=== PATIENT | male | born 1945 | race Caucasian/White ===

== ENCOUNTER → 2016-07-17 | Outpatient (CLI) | payer OTHER | LOC: FLAB 11:15 | PROVIDERS: ATTEND Internal Medicine Hematology & Oncology | DX: C90.00 Multiple myeloma not having achieved remission (principal); Z96.89 Presence of other specified functional implants ==

== ENCOUNTER → 2017-05-19 | Outpatient (CLI) | payer OTHER | LOC: FIMAGING 09:12 → EDSTATUS 09:13 | PROVIDERS: ATTEND Internal Medicine | DX: Z09 Encounter for follow-up examination after completed treatment for conditions other than malignant neoplasm (principal); Z87.01 Personal history of pneumonia (recurrent) ==

== ENCOUNTER 2017-05-28 12:14 | Inpatient (IN) | payer OTHER ==
[2017-05-28] MEDS ORDERED: NS 1,000 ML IV ONE (12:38)
--- NOTE | 2017-05-28 12:38 | EDPHY ---
HPI/HX/ROS/PE/MDM Narrative: CHIEF COMPLAINT: Cough, fever HPI: The patient is a 72 y/o male with multiple myeloma arriving with his partner complaining of cough, fever, and chills. He initially noticed chills Wednesday night, 3 days ago, and has been lying in bed with fever and malaise since Wednesday afternoon. His partner has been administering Tylenol regularly for fever as high as ~101F. He has vomited occasionally and has been unable to eat for 3 days due to this. He saw his oncologist yesterday for a monthly follow up appointment and had labs performed at that time. He feels worse today so his PCP referred him to the ED for evaluation of possible pneumonia. REVIEW OF SYSTEMS: Aside from elements discussed in the HPI, a comprehensive 10-point review of systems was reviewed and is negative. PMH: Multiple myeloma SOCIAL HISTORY: Retired facilities maintenance technician. Partner at bedside. PCP: Dr. Roman. Oncologist : Dr. Navarrete. PHYSICAL EXAM: General:Patient is alert, in no acute distress. ENT:Eyes are normal to inspection. ENT inspection normal. Neck: Normal inspection. Full range of motion. Respiratory:No respiratory distress. No wheezes nor rales. Mildly diminished on the right side. Cardiovascular: Regular rate and rhythm. Strong peripheral pulses. Normal cap refill. Abdomen:The abdomen is nontender to palpation. There are no peritoneal signs. Back: Normal to inspection. No tenderness to palpation. Skin: Normal color. No rash. Warm and dry. Extremities: Normal appearance. Full range of motion. Neuro: Oriented x3. Normal motor function. Normal sensory function. ED Course: This is a 72 y/o male with multiple myeloma who presents with a 3-day history of progressive cough, fever, and malaise. Plan for IV, labs, chest x-ray, 1L IV NS. Patient is slightly hypoxemic on room air here. O2 via NC administered. Chest x-ray: right lower lobe pneumonia. Reassessed patient and discussed findings. Recommended admission, which he agrees to. 1gm IV Rocephin and 500mg IV azithromycin ordered. Spoke with hospitalist service. Dr. Sosa accepts admission. MDM: I see no signs of septic shock, acute coronary syndrome, pulmonary embolus, empyema, renal failure. - Data Points Imaging Results: Imaging Impressions Chest X-Ray 05/28/17 12:39 Impression: 1. Right lower lobe consolidation/pneumonia. Imaging: I viewed and interpreted images myself Laboratory Results: Laboratory Results 05/28/17 12:51 05/28/17 12:51 05/28/17 05/28/17 05/28/17 12:51 12:51 12:51 WBC 7.50 10^3/uL 10^3/uL (3.80-9.50) RBC 3.98 10^6/uL L 10^6/uL (4.40-6.38) Hgb 13.4 g/dL L g/dL (13.7-17.5) Hct 36.5 % L % (40.0-51.0) MCV 91.7 fL fL (81.5-99.8) MCH 33.7 pg pg (27.9-34.1) MCHC 36.7 g/dL g/dL (32.4-36.7) RDW 14.2 % % (11.5-15.2) Plt Count 112 10^3/uL L 10^3/uL (150-400) MPV 9.8 fL fL (8.7-11.7) Neut % (Auto) 87.7 % H % (39.3-74.2) Lymph % (Auto) 2.7 % L % (15.0-45.0) Ceiba % (Auto) 6.9 % % (4.5-13.0) Eos % (Auto) 0.1 % L % (0.6-7.6) Baso % (Auto) 0.3 % % (0.3-1.7) Nucleat RBC Rel Count 0.0 % % (0.0-0.2) Absolute Neuts (auto) 6.58 10^3/uL H 10^3/uL (1.70-6.50) Absolute Lymphs (auto) 0.20 10^3/uL L 10^3/uL (1.00-3.00) Absolute Monos (auto) 0.52 10^3/uL 10^3/uL (0.30-0.80) Absolute Eos (auto) 0.01 10^3/uL L 10^3/uL (0.03-0.40) Absolute Basos (auto) 0.02 10^3/uL 10^3/uL (0.02-0.10) Absolute Nucleated RBC 0.00 10^3/uL 10^3/uL (0-0.01) Immature Gran % 2.3 % H % (0.0-1.1) Immature Gran # 0.17 10^3/uL H 10^3/uL (0.00-0.10) VBG Lactic Acid 1.3 mmol/L mmol/L (0.7-2.1) Sodium 139 mEq/L mEq/L (135-145) Potassium 3.5 mEq/L mEq/L (3.5-5.2) Chloride 103 mEq/L mEq/L (97-110) Carbon Dioxide 22 mEq/l mEq/l (22-31) Anion Gap 14 mEq/L mEq/L (8-16) BUN 21 mg/dL mg/dL (7-23) Creatinine 1.2 mg/dL mg/dL (0.7-1.3) Estimated GFR 60 Glucose 147 mg/dL H mg/dL (70-100) Calcium 7.5 mg/dL L mg/dL (8.5-10.4) Troponin I < 0.012 ng/mL ng/mL (0.000-0.034) Medications Given: Discontinued Medications Sodium Chloride (Ns) 1,000 mls @ 0 mls/hr IV EDNOW ONE; Wide Open PRN Reason: Protocol Stop: 05/28/17 12:39 Last Admin: 05/28/17 13:03 Dose: 1,000 mls General Time Seen by Provider: 05/28/17 12:24 Initial Vital Signs: Initial Vital Signs Temperature (C) 36.8 C 05/28/17 12:15 Heart Rate 92 05/28/17 12:15 Respiratory Rate 18 05/28/17 12:15 Blood Pressure 151/75 H 05/28/17 12:15 O2 Sat (%) 92 05/28/17 12:15 O2 Delivery Mode Nasal Cannula O2 (L/minute) 2 Allergies/Adverse Reactions: No Known Allergies Allergy (Unverified 05/28/17 12:19) Home Medications: Medication Instructions Recorded Aspirin [Aspirin 325 mg (*)] 325 mg PO DAILY 05/28/17 Herbals/Supplements -Info Only 1 ea PO DAILY 05/28/17 Lenalidomide [Revlimid] 10 mg PO HS 05/28/17 Multivitamins [Multivitamin (*)] 1 each PO DAILY 05/28/17 Tamsulosin HCl [Flomax 0.4 MG (*)] 0.8 mg PO HS 05/28/17 Departure - Departure Disposition: [facility] Inpatient Acute Clinical Impression: Hypoxemia Pneumonia Qualifiers: Pneumonia type: due to unspecified organism Laterality: right Lung location: lower lobe of lung Qualified Code(s): J18.1 - Lobar pneumonia, unspecified organism Condition: Fair Report Scribed for: Arun Templeton Report Scribed by: Hannah Polanco Date of Report: 05/28/17 Time of Report: 12:59 Physician Review and Approval Statement: Portions of this note were transcribed by an ED scribe. I personally performed the history, physical exam, and medical decision making; and confirm the accuracy of the information in the transcribed note.
[2017-05-28 13:03] LABS: PLATELET COUNT 112 10^3/uL (150-400)
[2017-05-28] MEDS ORDERED: AZITHROMYCIN IV 500 MG in D5W 250 ML IV ONE (13:26)
[2017-05-28] MEDS ORDERED: ACETAMINOPHEN 325 MG TAB PO ONE (14:24)
[2017-05-28] MEDS ORDERED: ONDANSETRON 4 MG/2 ML VIAL IVP ONE (14:33)
[2017-05-28] MEDS ORDERED: PROMETHAZINE HCL 25 MG/ML INJ IVP PRN (15:27)
[2017-05-28] MEDS ORDERED: IBUPROFEN 600 MG TAB PO PRN (15:27)
[2017-05-28] MEDS ORDERED: HYDROmorphone HCL/NS 0.5 MG/ML SYR IVP PRN (15:27)
[2017-05-28] MEDS ORDERED: KETOROLAC 30 MG/1 ML SDV IVP PRN (15:27)
[2017-05-28] MEDS ORDERED: NS 1,000 ML IV SCH (15:30)
--- NOTE | 2017-05-28 16:03 | GHP ---
[f rep st] HISTORY AND PHYSICAL DATE OF ADMISSION: 05/28/2017 CHIEF COMPLAINT: Cough. HISTORY OF PRESENT ILLNESS: The patient is a 72-year-old male who has been having fever and chills w ith a cough for the last 3 days. Fever at home has been up to 101. His has been giving him dennise eduled Tylenol. He has developed nausea and vomiting. He denies any sick contacts. Initially, he j ust felt malaise and chills, but yesterday he started with a cough. This remains nonproductive, alth ough he does feel congested. He has developed a new pleuritic back pain on the right side. He also has diffuse myalgias. PAST MEDICAL HISTORY: 1. Multiple myeloma. 2. BPH. 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 MEDICATIONS: Please see computerized record for full detailed list. ALLERGIES: No known drug allergies. SOCIAL HISTORY: Quit smoking in 2015. Did smoke heavily for about 20 years and then was a closet sm oker sneaking them for the next 20, but quit completely when he was diagnosed with multiple myeloma i n 2015. He also claims alcoholism and has been sober for 30 years. He is retired maintenance inspector. He lives with his partner of 27 years who is at bedside. REVIEW OF SYSTEMS: Complete review of systems obtained. Review of systems are negative regarding co nstitutional, HEENT, GI, pulmonary, cardiovascular, , hematology, skin, muscular, endocrine, and ps ych except for positives and negatives as in HPI. FAMILY HISTORY: Reviewed and noncontributory to the presenting complaint. PHYSICAL EXAMINATION: GENERAL: Well-developed, well-nourished male, in no acute distress. VITAL SI GNS: Temperature 36.8, pulse 95, blood pressure 129/53, saturating 95% on 2 L. HEENT: Eyes: Lesly l conjunctivae. Pupils equal and reactive to light. ENT: Normal ears, nose. Hearing intact. Norm al teeth. Oropharynx moist. NECK: Trachea midline. No thyromegaly. CHEST: Normal respiratory ef fort. LUNGS: Rales at the right base. No wheeze. No rhonchi. CARDIOVASCULAR: Regular rhythm. N o murmur. No extremity edema. ABDOMEN: Soft, nontender. No hepatosplenomegaly. SKIN: Warm, dry, and intact without rash. MUSCULOSKELETAL: No cyanosis or clubbing. Strength 5/5 in upper and lowe r extremities. NEUROLOGIC: Cranial nerves intact. Normal sensation to light touch. PSYCH: Alert and oriented x3. Normal affect. Normal judgment and insight. Normal memory. LABORATORY DATA: White count 7.5, hematocrit 36.5, platelets 112. Sodium 139, potassium 3.5, chlori de 103, bicarb 22, BUN 21, creatinine 1.2, glucose 147. Troponin is negative. Lactate is 1.3. Ches t x-ray viewed by me. My personal interpretation is right lower lobe pneumonia. ASSESSMENT AND PLAN: 1. Community-acquired pneumonia. We will continue ceftriaxone and azithromycin. Respiratory PCR pa sapna is pending. However, given his focal infiltrate on chest x-ray, we will continue with antibiotic s. 2. Multiple myeloma. Continue Revlimid. 3. Benign prostatic hypertrophy. Continue Flomax. CODE STATUS: Full. ADMISSION STATUS: Will admit to observation. Reevaluate tomorrow regarding ongoing need for hospita lization. DVT PROPHYLAXIS: He is high risk. Will place on subcu Lovenox. /[id number]/MODL
[2017-05-28] MEDS: ACETAMINOPHEN 325 MG TAB PO PRN (18:34)
[2017-05-28] MEDS ORDERED: TAMSULOSIN HCL 0.4 MG CAP PO SCH (21:00)
[2017-05-28] MEDS ORDERED: Lenalidomide [Revlimid] 10 MG PO SCH (21:00)
[2017-05-29 05:32] LABS: PLATELET COUNT 108 10^3/uL (150-400)
[2017-05-29] MEDS: ONDANSETRON 4 MG/2 ML VIAL IVP PRN (06:35)
[2017-05-29] MEDS ORDERED: PROTOCOL POTASSIUM 1 DOSE MISC PRN (08:36)
[2017-05-29] MEDS: ASPIRIN 325 MG TAB PO SCH (08:50)
[2017-05-29] MEDS: ENOXAPARIN 40 MG/0.4 ML SYR SC SCH (08:51)
[2017-05-29] MEDS ORDERED: AZITHROMYCIN IV 500 MG in NS 250 ML IV SCH (09:00)
[2017-05-29] MEDS: ACETAMINOPHEN 325 MG TAB PO PRN ×3 (09:54→21:09)
[2017-05-29] MEDS ORDERED: POTASSIUM CL 10 MEQ TAB PO ONE ×3 (10:50→20:50)
--- NOTE | 2017-05-29 12:53 | ASMTCMCOM ---
CM Note CM Note Notes: Pt. is a 72-year-old man admitted w/ PNA. Hx. multiple myeloma, BPH, and neuropathy due to chemo. Pt. hx. of many years of smoking - quit in 2016. Pt. lives w/ his Leta. Likely to be d/c independently when ready. CM available should d/c POC change. Date Signed: 05/29/2017 12:52 PM Electronically Signed By:Yajaira Sanford LCSW
--- NOTE | 2017-05-29 15:57 | GCON ---
[f rep st] CONSULTATION HEMATOLOGY/ONCOLOGY CONSULTATION REASON FOR CONSULTATION: Multiple myeloma. HISTORY OF PRESENT ILLNESS: The patient is a 72-year-old man with a history of IgG kappa myeloma, diagnosed 01/2016. He was treated with RVD, with initially reduced dose Revlimid due to renal impairment. He essentially had a CR based on laboratory studies. While he had stem cells collected, he elected not to proceed with autologous stem cell transplants as consolidative therapy. He has been on maintenance Revlimid at 10 mg daily, days 1-21 every 28 days, as well as Zometa. He was seen in the office 05/27/2017, for usual followup. He had been having a low-grade fever and achiness, but no cough. He was actually feeling better at the time of his visit. He came to the emergency room 05/28/2017, with fever up to 101 despite Tylenol, nausea, vomiting, and nonproductive cough. Chest x-ray demonstrated right lower lobe pneumonia. Respiratory pathogen PCR negative. Azithromycin and ceftriaxone were started yesterday. He reports being very fatigued. He continues to have some nonproductive cough. Nausea is improved, and he was able to eat today, following some Zofran this morning. His is present. PAST MEDICAL HISTORY: 1. Myeloma, as above. 2. BPH. 3. History of neuropathy, attributed to chemotherapy. MEDICATIONS: Revlimid 10 mg daily, days 1-21, every 28 days. Today would be his last dose. Aspirin, Flomax. ALLERGIES: No known drug allergies. SOCIAL HISTORY: He is and lives in [place]. He is a former smoker, quitting in 2015. No alcohol, prior history of alcoholism. He is a retired senior attorney. REVIEW OF SYSTEMS: CONSTITUTIONAL: Fatigue, fever and chills as above. HEENT : No oral ulcers, vision changes. CARDIOVASCULAR: No chest pain, palpitations, orthopnea, or lower extremity edema. RESPIRATORY: Per HPI. GI: Per HPI. HEMATOLOGIC: No bleeding or bruising. PHYSICAL EXAM: VITAL SIGNS: 122/49, heart rate 76, respirations 16, 95% on 2.5 L. T-max 38.1 last night, current temperature 37.1. GENERAL: Fatigued appearing gentleman, in no acute distress. Alert and oriented. HEENT: No scleral icterus. NECK: Supple. LUNGS: A few crackles at the right base, otherwise clear. CARDIOVASCULAR: Regular rate and rhythm. No pretibial edema. ABDOMEN: Soft, nontender, nondistended. SKIN: No rashes. NEUROLOGIC : Grossly nonfocal. LABORATORY STUDIES: WBC 4.9 (53% segs, 40% bands, 3% lymphocytes, 3% monocytes , 1% basophils), hemoglobin 12.2, platelets 108,000. Sodium 138, potassium 3.3 , chloride 105, bicarbonate 22, BUN 21, creatinine 1.2, glucose 123. Normal LFTs. RADIOLOGIC STUDIES: Chest x-ray as above. IMPRESSION: 1. Community acquired pneumonia. He is receiving ceftriaxone and azithromycin. His fever curve appears improved. 2. Myeloma: He will hold his last day of maintenance Revlimid today. Deep vein thrombosis prophylaxis with Lovenox is appropriate, particularly in light of Revlimid therapy. /[id number]/MODL MTDD
--- NOTE | 2017-05-29 16:08 | ASMTCMCOM ---
CM Note CM Note Notes: Pt. d/cing independently this evening. Date Signed: 05/29/2017 04:07 PM Electronically Signed By:Yajaira aSnford LCSW
--- NOTE | 2017-05-29 16:48 | HOSPPROG ---
Hospitalist Progress Note Assessment/Plan: * Pneumonia -feels better but oxygen increasing - now 4L -recheck CXR -PO levaquin * Multiple myeloma -Rezamid * Acute respiratory failure - now up to 4L * BPH - flomax Subjective: Feels much better Objective: Vital Signs Temp Pulse Resp BP Pulse Ox 36.9 C 102 H 18 147/65 H 91 L 05/29/17 16:00 05/29/17 16:00 05/29/17 16:00 05/29/17 16:00 05/29/17 16:00 Laboratory Results 05/29/17 04:29 05/29/17 04:29 05/28/17 05/29/17 05/30/17 05:59 05:59 05:59 Intake Total 274 Output Total 500 Balance -226 - Physical Exam Constitutional: no apparent distress, appears nourished, not in pain Cardiovascular: regular rate and rhythym, no murmur, rub, or gallop Respiratory: no respiratory distress, no rales or rhonchi, clear to auscultation Gastrointestinal: normoactive bowel sounds, soft, non-tender abdomen, no palpable masses Skin: no rashes or abrasions, no fluctuance, no induration Neurologic: AAOx3, sensation intact bilaterally Psychiatric: interacting appropriately, not anxious, not encephalopathic, thought process linear ICD10 Worksheet Patient Problems: Problems Problem Status Onset Hypoxemia Acute Pneumonia Acute
[2017-05-29] MEDS: oxyCODONE IR 5 MG TAB PO PRN ×2 (16:51→21:02)
[2017-05-29] MEDS: TAMSULOSIN HCL 0.4 MG CAP PO SCH (16:59)
--- NOTE | 2017-05-29 17:20 | PDMN ---
Medical Necessity Medical necessity: C/M review: est. > 2 MN LOS for eval and TX of acute and persistent - pneumonia, respiratory failure requiring IV antibiotics 05/28/2017 and 05/29/2017 , ongoing supplemental O2 4L/min., pulse oximetry, cardiac monitoring, transition to oral Levaquin daily starting 05/30/2017, acute inpt PT, comorbid multiple myeloma on Rezamid, BPH per 05/29/2017 Hospitalist progress note.
[2017-05-29] MEDS ORDERED: Lenalidomide [Revlimid] 10 MG PO SCH (18:00)
[2017-05-30] MEDS: oxyCODONE IR 5 MG TAB PO PRN ×3 (03:33→17:19)
[2017-05-30] MEDS: IPRATROPIUM/ALBUTEROL 3 ML DEYVIAL IH PRN ×2 (04:30→09:22)
[2017-05-30 05:26] LABS: PLATELET COUNT 114 10^3/uL (150-400)
[2017-05-30] MEDS ORDERED: POTASSIUM CL 10 MEQ TAB PO ONE ×4 (07:56→19:22)
[2017-05-30] MEDS ORDERED: NS 500 ML IV ONE (08:45)
[2017-05-30] MEDS: ENOXAPARIN 40 MG/0.4 ML SYR SC SCH (08:50)
[2017-05-30] MEDS: ASPIRIN 325 MG TAB PO SCH (08:50)
[2017-05-30] MEDS ORDERED: HEPARIN 10,000 UNIT/10 ML MDV (1,000 UNIT/ML) IVP ONE (10:29)
[2017-05-30] MEDS ORDERED: HEPARIN 10,000 UNIT/10 ML MDV (1,000 UNIT/ML) IVP PRN (10:29)
[2017-05-30] MEDS ORDERED: HEPARIN/DEXTROSE 500 ML IV SCH (10:30)
[2017-05-30] MEDS ORDERED: DILTIAZEM 25 MG/5 ML VIAL IVP SCH (10:30)
[2017-05-30] MEDS ORDERED: DILTIAZEM 125 MG in D5W 125 ML IV ONE (10:30)
[2017-05-30] MEDS ORDERED: ENOXAPARIN 40 MG/0.4 ML SYR SC ONE (10:37)
[2017-05-30] MEDS ORDERED: IOPAMIDOL (ISOVUE 370) 100 ML BTL IV ONE ×2 (10:51→11:19)
[2017-05-30] MEDS ORDERED: DILTIAZEM 125 MG in D5W 125 ML IV SCH (11:00)
--- NOTE | 2017-05-30 13:01 | ECHO ---
[email or web address] [address] Main: [phone] Fax: [email or web address] Echocardiogram Name: CAROL ADAIR MR#: [id number] Study Date: 05/30/2017 Study Time: 12:14 PM Date of : 1945 Age: 72 year(s) Height: 180.3 cm (71 in.) Weight: 74.84 kg (165 lb.) BSA: 1.94 m2 Gender: Male Examination: Echo Indication: new onset afib Image Quality: Adequate Contrast: Requested by: Kiera Sosa BP: 121 mmHg/41 mmHg Heart Rate: Rhythm: Indication: new onset afib Procedure Staff Tactical/Mobile Watch Officer: Gissel Martinez RDCS Reading Physician: Roverto Palma MD Requesting Provider: Conclusions: Normal global systolic LV function. EF is 65 %. Normal diastolic LV function. Mild tricuspid regurgitation is present. The pulmonary artery pressure is moderately increased. Right ventricular systolic pressure measures 47mmHg. Trivial pericardial effusion. Measurements: Chambers Valvular Assessment AV/MV Valvular Assessment TV/PV Normal Normal Normal Name Value Range Name Value Range Name Value Range IVSd (2D): 0.9 cm (0.6 cm-1.1 AV Vmax: 1.64 m/s (1 m/s-1.7 TR Vmax: 3.24 mm/s ( - ) cm) m/s) TR PGmax: 42 mmHg ( - ) LVDd (2D): 4.6 cm (4.2 cm-5.9 AV maxP mmHg ( - ) syst. PAP: 47 mmHg ( - ) cm) LVOT Vmax: 1.21 m/s (0.7 m/s-1.1 PV Vmax: 1.25 m/s (0.6 m/s-0.9 LVDs (2D): 3.1 cm (2.1 cm-4 m/s) m/s) cm) MV E Vmax: 0.81 m/s ( - ) PV PGmax: 6 mmHg ( - ) LVPWd (2D): 1.1 cm (0.6 cm-1 MV A Vmax: 0.74 m/s ( - ) cm) MV E/A: 1.09 ( - ) LVEF (BP): 65 % (>=55 %) RVDd(2D): 2.8 cm (1.9 cm-3.8 cmmm) Continued Measurements: Chambers Valvular Assessment AV/MV Valvular Assessment TV/PV Name Value Name Value Name Value LADs: 3.8 cm MV DecTime: 215 m/s CVP (est.): 5 mmHg LADs Lon.9 cm MV E' Septal: 0.13 m/s Patient: CAROL ADAIR Study Date: 05/30/2017 Page 1 of 2 12:14 PM LA Area: 14.1 cm2 MV E/E' Septal: 6.30 LA Volume: 35 ml MV E/E' Lateral: 8.30 LA Volume Index: 18.0 ml/m2 TAPSE: 2.2 cm RA Area: 18.0 cm2 Findings: Left Ventricle: Normal size left ventricle. No LV hypertrophy. Normal global systolic LV function. EF is 65 %. No regional wall motion abnormality. Normal diastolic LV function. Right Ventricle: Normal size right ventricle. Normal RV function. Left Atrium: The left atrium is normal in size. Right Atrium: The right atrium is normal in size. Mitral Valve: The mitral valve is normal in appearance and function. Trivial to mild mitral regurgitation. No mitral stenosis is present. Aortic Valve: The aortic valve is tri-leaflet and functions normally. There is no aortic valve regurgitation. No aortic valve stenosis is present. Tricuspid Valve: The tricuspid valve is normal in appearance and function. Mild tricuspid regurgitation is present. The pulmonary artery pressure is moderately increased. Right ventricular systolic pressure measures 47mmHg. Pulmonic Valve: The pulmonic valve is normal in appearance and function. Trivial pulmonic valve regurgitation. Aorta: The aorta is normal. Normal size aortic root. IVC: The IVC is normal sized. Pericardium: Trivial pericardial effusion. (No Signature Object) Patient: CAROL ADAIR Study Date: 05/30/2017 Page 2 of 2 12:14 PM [id number]
[2017-05-30] MEDS: ONDANSETRON 4 MG/2 ML VIAL IVP PRN (13:45)
--- NOTE | 2017-05-30 15:12 | SOAPPROG ---
SOAP Progress Note Assessment/Plan: A/P: * Community-acquired PNA (RLL) in immunocompromised host: AF since initiation of abx. Increased O2 requirement. CTA neg for PE. ECHO normal. - was changed from ceftriaxone/Azithro to levofloxacin in anticipation of possible d/c yesterday, change back to 2 drug therapy - he may need ID consult * Myeloma: maintenance Revlimid, on off week. 05/30/17 15:19 Subjective: Tired. Some posterior right chest/back pain. Nonproductive cough. No increased dyspnea. O: O2 sat 88-90% on 5L Selected Entries 05/30/17 10:58 Heart Rate 98 O2 Sat (%) 89 L Temperature (C) 36.5 C Blood Pressure 121/41 H O2 (L/minute) 5 Gen: fatigued appearing, A&O. HEENT: no icterus. CV: RRR, no edema. Lungs: decreased BS RLL, few crackles. Abd: soft, NT. Neuro: nonfocal. Laboratory Tests 05/30/17 05/30/17 04:47 04:47 WBC 3.11 L Hgb 11.4 L Plt Count 114 L Seg Neutrophils % 45 Band Neutrophils % 41 Absolute Seg Neuts 1.40 L Absolute Band Neuts 1.28 H Creatinine 1.4 H Radiology: CTA - neg PE, +RLL consolidation, small left infiltrate ECHO - normal EF, PHTN Objective: Vital Signs Temp Pulse Resp BP Pulse Ox 36.5 C 98 20 121/41 H 89 L 05/30/17 10:58 05/30/17 10:58 05/30/17 10:58 05/30/17 10:58 05/30/17 10:58 Laboratory Results 05/30/17 04:47 05/30/17 04:47 05/29/17 05/30/17 05/31/17 05:59 05:59 05:59 Intake Total 274 1100 Output Total 500 800 525 Balance -226 300 -525 ICD10 Worksheet Patient Problems: Problems Problem Status Onset Hypoxemia Acute Pneumonia Acute
[2017-05-30] MEDS: METOPROLOL TARTRATE 25 MG TAB PO SCH ×2 (15:40→20:36)
[2017-05-30] MEDS: NS 1,000 ML IV SCH (15:50)
--- NOTE | 2017-05-30 16:58 | HOSPPROG ---
Hospitalist Progress Note Assessment/Plan: * Pneumonia -IV ceftriaxone, IV azithro * Multiple myeloma -Revlimid * Acute respiratory failure - oxygen requirement increased over last 24 hours * Rapid afib -converted himself shortly after transfer to tele -start PO beta-oj and Eliquis * BPH - flomax CC time 45 min Subjective: Patient's oxygen requirement when up significantly overnight. As I was in the room seeing him this am, he suddenly went into fast HR >160 with palpitaitons. STAT EKG confirmed afib. Patient transferred emegently to tele. IV diltiazem ordered but patient converted self before it was given, shortly after arriving on tele. Concern for PE given lack of fever/ leukocytosis so STAT CTA rule out PE obtained. This just confirmed severe PNA. Objective: Vital Signs Temp Pulse Resp BP Pulse Ox 36.5 C 95 89 H 129/64 H 5 L 05/30/17 16:00 05/30/17 16:00 05/30/17 16:00 05/30/17 16:00 05/30/17 16:00 Laboratory Results 05/30/17 04:47 05/30/17 04:47 05/29/17 05/30/17 05/31/17 05:59 05:59 05:59 Intake Total 274 1100 Output Total 500 800 525 Balance -226 300 -525 ECHO - normal EF, mild increased pulmonary pressures CTA - no PE, severe PNA case d/w Dr. Rausch - continue IV abx EKG viewed, my personal interpretation is - rapid afib - Physical Exam Constitutional: no apparent distress, appears nourished, not in pain Cardiovascular: no murmur, rub, or gallop, irregularly irregular, tachycardia, No diastolic murmur, No edema Respiratory: no respiratory distress, no rales or rhonchi, clear to auscultation Gastrointestinal: normoactive bowel sounds, soft, non-tender abdomen, no palpable masses Skin: no rashes or abrasions, no fluctuance, no induration Neurologic: AAOx3, sensation intact bilaterally Psychiatric: interacting appropriately, not anxious, not encephalopathic, thought process linear ICD10 Worksheet Patient Problems: Problems Problem Status Onset Hypoxemia Acute Pneumonia Acute
[2017-05-30] MEDS: TAMSULOSIN HCL 0.4 MG CAP PO SCH (17:15)
[2017-05-30] MEDS: ACETAMINOPHEN 325 MG TAB PO PRN (17:20)
[2017-05-30] MEDS: APIXABAN 5 MG TAB PO SCH (20:36)
[2017-05-30] MEDS ORDERED: ENOXAPARIN 80 MG/0.8 ML SYR SC SCH (21:00)
[2017-05-30] MEDS ORDERED: MBX SOLN 30 ML BOTTLE PO PRN (23:06)
[2017-05-31] MEDS: NS 1,000 ML IV SCH (03:11)
[2017-05-31 04:12] LABS: PLATELET COUNT 130 10^3/uL (150-400)
[2017-05-31] MEDS ORDERED: ASPIRIN 81 MG CHEWABLE TAB PO SCH (09:00)
[2017-05-31] MEDS: APIXABAN 5 MG TAB PO SCH ×2 (10:25→19:49)
[2017-05-31] MEDS: METOPROLOL TARTRATE 25 MG TAB PO SCH ×2 (10:25→19:49)
[2017-05-31] MEDS: AZITHROMYCIN IV 500 MG in NS 250 ML IV SCH (10:26)
[2017-05-31] MEDS: ACETAMINOPHEN 325 MG TAB PO PRN ×3 (10:37→22:14)
[2017-05-31] MEDS ORDERED: POTASSIUM CL 10 MEQ TAB PO ONE ×2 (10:39→19:53)
[2017-05-31] MEDS: ONDANSETRON 4 MG/2 ML VIAL IVP PRN ×2 (12:11→17:19)
[2017-05-31] MEDS ORDERED: PROMETHAZINE HCL 25 MG/ML INJ IVP PRN (12:27)
--- NOTE | 2017-05-31 12:47 | SOAPPROG ---
SOAP Progress Note Assessment/Plan: Assessment: 1. Multiple myeloma, in remission. 2. Pneumonia, recurrent (previous episode [place] Oct 2016 [place]) 3. A fib, new Plan: - continue current abx - consider ID consult for evaluation for opportunistic infection - hold revlimid for now - hold ASA while on Eliquis (either one can be used for VTE prophylaxis from Revlimid, but both are not needed) - will check Qigs 25 min spent w/ pt and in coordination of care 05/31/17 12:45 Subjective: feeling better today. Objective: exam: tired, breathing comfortably Lungs: dullness and rhonci RLL CV RRR no MGR Abd: +BS NT ND Ext: no edema Vital Signs Temp Pulse Resp BP Pulse Ox 37.3 C 99 18 140/69 H 91 L 05/31/17 07:09 05/31/17 10:25 05/31/17 07:09 05/31/17 07:09 05/31/17 07:09 Laboratory Results 05/31/17 03:44 05/31/17 03:44 05/30/17 05/31/17 06/01/17 05:59 05:59 05:59 Intake Total 1100 3993 370 Output Total 800 3925 425 Balance 300 68 -55 ICD10 Worksheet Patient Problems: Problems Problem Status Onset Hypoxemia Acute Pneumonia Acute
[2017-05-31] MEDS ORDERED: ALBUTEROL 3 ML DEYVIAL IH PRN (14:00)
--- NOTE | 2017-05-31 14:00 | HOSPPROG ---
Hospitalist Progress Note Assessment/Plan: 72 yo M with hx of MM on chronic immune suppression presenting with pna, recurrent since october # pna: on personal review of chest CT notable for extensive RLL consolidation as well as minimal LLL consolidation currently being treated with ctx/azithro and improving slowly. Discussed with patient and his and they have some concerns for possible opportunistic infection, ? coccidiomycosis after discussion with their relative who is an ID doctor. Will ask ID to consult. Cultures thus far negative, resp PCR negative. # acute hypoxic respiratory failure: patient continues to require 5L of o2 to maintain o2 sats > 90, in setting of above. Will add IS and PRN nebs. # MM: on revlimib, appreciate onc consult, currently in remission # nausea/anorexia: patient with little appetite and c/o nausea when he thinks about eating, began with this infection, will add phenergan and continue zofran. Denies dysphagia/odynophagia. # a fib: monitoring on tele but converted shortly after it began, continue bb/ eliquis # bph: continue flomax # IP status Patient new to my care. Old records reviewed and summarized as above. Further hx obtained from patients present at bedside. Reviewed with Dr. Terry. Subjective: no significant overnight events, continues to be hot and have low grade fevers Objective: Vital Signs Temp Pulse Resp BP Pulse Ox 37.3 C 99 18 140/69 H 91 L 05/31/17 07:09 05/31/17 10:25 05/31/17 07:09 05/31/17 07:09 05/31/17 07:09 Laboratory Results 05/31/17 03:44 05/31/17 03:44 05/30/17 05/31/17 06/01/17 05:59 05:59 05:59 Intake Total 1100 3993 370 Output Total 800 3925 425 Balance 300 68 -55 awake alert nad anicteric op clear rrr no mrg rll rales and scattered wheeze, dec bs soft nt nd no cce warm dry well perfused oriented appropriate - Time Spent With Patient Time Spent with Patient: greater than 35 minutes Time Spent with Patient: Greater than 35 minutes spent on this patients care, greater than 50% of time spent counseling, educating, and coordinating care regarding the above mentioned plan. ICD10 Worksheet Patient Problems: Problems Problem Status Onset Chronic disease mgmt/Transitional Care Acute Pneumonia Acute Hypoxemia Acute
--- NOTE | 2017-05-31 16:21 | ASMTCMCOM ---
CM Note CM Note Notes: 05/31/2017 Case Management Note Pt was sleeping when case management attempted to meet w/pt this afternoon. PT has discontinued from service here in the hospital. There are no anticipated d/c needs from case management d/t marital status and ongoing support from medical providers. Case Management d/c poc: anticipating independent with follow up as directed. Case Management available if needs change. Date Signed: 05/31/2017 04:21 PM Electronically Signed By:Winifred Guzman RN
[2017-05-31] MEDS: TAMSULOSIN HCL 0.4 MG CAP PO SCH (17:19)
[2017-05-31] MEDS: CEFEPIME HCL 1 GM in STERILE WATER INJ 11.3 ML IV SCH (17:19)
--- NOTE | 2017-05-31 19:23 | GCON ---
[f rep st] CONSULTATION DATE OF CONSULTATION: 05/31/2017 REQUESTING PHYSICIAN: Dr. Cande Moody. REASON FOR CONSULTATION: Right-sided pneumonia. HISTORY OF PRESENT ILLNESS: Patient is a 72-year-old male with a past medical history of multiple my eloma, on chronic Revlimid therapy, who I am asked to see in consultation for right-sided pneumonia. The patient describes having the abrupt onset of fever, chills, and malaise approximately 3 days ago . This was associated with nausea and some vomiting. Subsequently, he developed cough and shortness of breath with diffuse myalgias and arthralgias. He does not note any pleuritic chest pain. He does have a preceding history of pneumonia in October last year, which required hospitalization in [place]. Initial evaluation revealed evidence of right lower lobe consolidation. When compared to an x -ray in late April, this was not present. The patient was started on treatment for community-acquire d pneumonia with ceftriaxone and azithromycin. The patient has had persistent fever, chills, night s weats, and pulmonary symptoms despite antibiotic therapy. Yesterday, a CT scan of the chest was perf ormed which shows dense consolidation in the right lower lobe with minimal associated pleural effusio n. There were small patchy areas of consolidation in the left lower lobe. The patient previously gandara s spent significant amounts of time in [place], [place], with the last time being a little ove r 1 year ago. He did travel to [place] approximately 3 weeks prior to onset of symptoms. There are no unusual animal exposures. No unusual hobbies. Patient does not have exposure to hot tubs or cool ing towers. A family member is a pediatric infectious disease physician and raised the possibility o f valley fever to the patient. The patient does describe having prior pneumococcal vaccination. Tod ay, his sputum production is bloody. Given the above findings, I am now asked to assist [facility]. PAST MEDICAL HISTORY: Multiple myeloma on Revlimid, pneumonia requiring hospitalization in [place], BPH, neuropathy associated with prior chemotherapy. PAST SURGICAL HISTORY: Multiple orthopedic surgeries. CURRENT MEDICATIONS: Ceftriaxone 1 g IV daily, azithromycin 500 mg IV daily, Lopressor 25 mg p.o. b. i.d., Flomax 0.8 mg p.o. daily, albuterol nebs as needed, DuoNeb as needed, Eliquis 5 mg p.o. b.i.d. ALLERGIES: No known drug allergies. SOCIAL HISTORY: Patient is a former smoker and user of alcohol but none currently. Recent travel to [place]. Prior travel to [place]. No unusual animal exposures. No animal carcasses on his property. FAMILY HISTORY: Pancreatic cancer. REVIEW OF SYSTEMS: Outside that noted in the HPI, remainder of 10-system review is unremarkable. PHYSICAL EXAMINATION: VITAL SIGNS: Temperature maximum 38.2, temperature current 37.3, heart rate 9 8, respiratory rate 18, blood pressure 140/69, oxygen saturation 91% on 5 L. GENERAL: Patient is mi ldly ill appearing but nontoxic. HEENT: There is no scleral icterus, conjunctival injection, or con junctival petechiae. Oropharynx shows dry mucous membranes with no thrush. There is no nasal discha rge. There is no tenderness over the frontal, maxillary or mastoid area. NECK: Supple without palp able lymphadenopathy or thyromegaly. CHEST: There are bronchial breath sounds present over the righ t lower lung field. The respiratory effort is increased. There is intermittent cough. Sputum is pr esent in a bedside container with blood streaks. CARDIOVASCULAR: Regular rate and rhythm without mu rmurs, gallops, or rubs. ABDOMEN: Soft, nontender, nondistended. There is no palpable organomegaly . Bowel sounds are present. MUSCULOSKELETAL: There is no cyanosis, clubbing, or edema. Well-heale d scar is present over the right shoulder. NEUROLOGIC: Patient is alert and interacts appropriately with examiner. Cranial nerves 2-12 are grossly intact. Sensation is grossly intact. LYMPHATICS: No cervical or supraclavicular nodes. SKIN: No rashes noted. No stigmata of endocarditis. The ski n is diffusely warm to palpation. LABORATORY DATA: White blood cell count 2.9, hematocrit 29.0, platelets 130, neutrophils 49%, bands 39%. Absolute neutrophil count is 2600. Serum creatinine is 1.2. Venous lactate is 1.8. Immunoglo bulins quantitatively are pending. Chest x-ray and CT scan of chest both reviewed and interpreted by me as outlined above. A respiratory pathogen panel by PCR testing is negative. Blood cultures x2 a re no growth to date. IMPRESSION: Right lower lobe pneumonia with underlying multiple myeloma: Most likely, this will be due to Streptococcus pneumoniae based on dense consolidation, presence of myeloma, with additional santiago ggestion from blood-streaked sputum. He also has associated leukopenia but is not neutropenic. Othe r pathogens such as Haemophilus influenzae, Legionella, or atypicals would also be consideration. Th e patient does have recent travel to [place] raising possibility of coccidioidomycosis. I think a ty pical bacterial etiology will be of higher likelihood. However, will obtain serum antibody testing t o further evaluate. Given his immunosuppression, other gram-negative rods such as pseudomonas are a more remote consideration. I suspect his progression is likely the natural history of his disease ra ther than representing treatment failure. RECOMMENDATIONS: 1. Change ceftriaxone to cefepime for addition of antipseudomonal activity. 2. Continue azithromycin. 3. Urine Legionella and Streptococcus pneumoniae antigens. 4. Check coccidioides antibodies. 5. Repeat chest x-ray in a.m. to assess for any further progression of pulmonary infiltrates. 6. Adjust antibiotic therapy accordingly as cultures are available. 7. Will obtain sputum although may be of limited utility given prior antibiotic exposure. Thank you for this consultation. We will continue to follow patient with you. /[id number]/MODL
[2017-06-01] MEDS: ZOLPIDEM TARTRATE 5 MG TAB PO PRN ×2 (00:17→21:20)
[2017-06-01] MEDS ORDERED: POTASSIUM CL 20 MEQ TAB PO ONE (01:30)
[2017-06-01 03:59] LABS: PLATELET COUNT 185 10^3/uL (150-400)
[2017-06-01] MEDS: CEFEPIME HCL 1 GM in STERILE WATER INJ 11.3 ML IV SCH ×2 (06:16→17:40)
[2017-06-01] MEDS: AZITHROMYCIN IV 500 MG in NS 250 ML IV SCH (08:20)
[2017-06-01] MEDS: METOPROLOL TARTRATE 25 MG TAB PO SCH ×2 (08:20→21:21)
[2017-06-01] MEDS: APIXABAN 5 MG TAB PO SCH ×2 (08:20→21:21)
--- NOTE | 2017-06-01 09:30 | CPEKG ---
Heart Rate: 153 RR Interval: 392 QRSD Interval: 78 QT Interval: 280 QTC Interval: 447 QRS [place]: 75 T Wave [place]: 261 EKG Severity - ABNORMAL ECG - EKG Impression: ATRIAL FIBRILLATION WITH RAPID V-RATE EKG Impression: REPOLARIZATION ABNORMALITY, PROB RATE RELATED Electronically Signed By: Trudy Angelo 01-Jun-2017 11:00:52
--- NOTE | 2017-06-01 11:32 | SOAPPROG ---
SOAP Progress Note Assessment/Plan: Assessment: 1. Multiple myeloma, in remission. 2. Pneumonia, recurrent (previous episode [place] Oct 2016 [place] of state) 3. A fib, new Plan: - continue current abx - appreciate ID input - hold revlimid for now - hold ASA while on Eliquis (either one can be used for VTE prophylaxis from Revlimid, but both are not needed) - will check Qigs Subjective: feeling a bit better today. Objective: exam: NAD dullness @ right base Vital Signs Temp Pulse Resp BP Pulse Ox 36.9 C 77 22 H 133/64 H 94 06/01/17 11:20 06/01/17 11:20 06/01/17 11:20 06/01/17 11:20 06/01/17 11:20 Microbiology 05/31/17 19:40 - Final Sputum, Expectorated Laboratory Results 06/01/17 03:40 06/01/17 03:40 05/31/17 06/01/17 06/02/17 05:59 05:59 05:59 Intake Total 3993 1870 250 Output Total 3925 1600 Balance 68 270 250 ICD10 Worksheet Patient Problems: Problems Problem Status Onset Chronic disease mgmt/Transitional Care Acute Hypoxemia Acute Pneumonia Acute
[2017-06-01] MEDS ORDERED: POTASSIUM CL 10 MEQ TAB PO ONE ×2 (11:54→21:09)
--- NOTE | 2017-06-01 14:10 | HOSPPROG ---
Hospitalist Progress Note Assessment/Plan: 72 yo M with hx of MM on chronic immune suppression presenting with pna, recurrent since october # pna: on personal review of chest CT notable for extensive RLL consolidation as well as minimal LLL consolidation in setting of chronic immune suppression, appreciate ID consult--broadened from CTX to cefepime as well as azithro. Much improved symptomatically overnight. Will continue current abx and monitor culture data--cocci, crypto, legionella, strep pneumo pending as well as blood and sputum cxs. Resp PCR negative. # sepsis: in setting of above, fever and tachycardia present on admission with last fever overnight. Continue to trend fever curve. # acute hypoxic respiratory failure: patient continues to require 5L of o2 to maintain o2 sats > 90, in setting of above. Continue to wean as able, ambulation , IS, PRN nebs. # MM: on revlimib, appreciate onc consult, currently in remission # nausea/anorexia: patient with little appetite and c/o nausea when he thinks about eating, began with this infection. Improved overnight and now eating much better. # a fib: monitoring on tele, has recurred overnight but self terminated after a couple of hours, continue bb/eliquis # bph: continue flomax # IP status Further hx obtained from patients present at bedside. Subjective: no significant overnight events, patient currently feeling much better than he was yesterday Objective: Vital Signs Temp Pulse Resp BP Pulse Ox 36.9 C 77 22 H 133/64 H 94 06/01/17 11:20 06/01/17 11:20 06/01/17 11:20 06/01/17 11:20 06/01/17 11:20 Microbiology 05/31/17 19:40 - Final Sputum, Expectorated Laboratory Results 06/01/17 03:40 06/01/17 03:40 05/31/17 06/01/17 06/02/17 05:59 05:59 05:59 Intake Total 3993 1870 250 Output Total 3925 1600 Balance 68 270 250 awake alert nad anicteric op clear rrr no mrg rll rales and scattered wheeze, dec bs soft nt nd no cce warm dry well perfused oriented appropriate - Time Spent With Patient Time Spent with Patient: greater than 35 minutes Time Spent with Patient: Greater than 35 minutes spent on this patients care, greater than 50% of time spent counseling, educating, and coordinating care regarding the above mentioned plan. ICD10 Worksheet Patient Problems: Problems Problem Status Onset Chronic disease mgmt/Transitional Care Acute Hypoxemia Acute Pneumonia Acute
[2017-06-01] MEDS: ACETAMINOPHEN 325 MG TAB PO PRN (17:40)
[2017-06-01] MEDS: TAMSULOSIN HCL 0.4 MG CAP PO SCH (17:59)
--- NOTE | 2017-06-01 18:22 | PCMIDPN ---
Assessment/Plan: Assessment/Plan: * Severe right lower lobe pneumonia/less prominent left lower lobe pneumonia with underlying myeloma: Clinically improved today. Remains most likely this is due to typical pathogens of community-acquired pneumonia such as Streptococcus pneumoniae. Sputum sample shows mixed Gram stain with culture pending. Will continue to follow clinical course an x-ray over time to ensure does not developed enlarging right pleural effusion which would necessitate thoracentesis. Serologic studies for coccidioidomycosis and cryptococcosis are pending. Continue cefepime and azithromycin. Think can hold off on bronchoscopy at this point given patient is clinically improving. 06/01/17 18:14 06/01/17 18:23 Subjective: Patient feels significantly better today. Able to eat a sandwich. Spent most of the day sitting in a chair. Objective: Vital Signs Temp Pulse Resp BP Pulse Ox 36.9 C 84 24 H 144/61 H 93 06/01/17 15:56 06/01/17 15:56 06/01/17 15:56 06/01/17 15:56 06/01/17 16:10 Microbiology 05/31/17 19:40 - Final Sputum, Expectorated Laboratory Results 06/01/17 03:40 05/31/17 06/01/17 06/02/17 05:59 05:59 05:59 Intake Total 3993 1870 975 Output Total 3925 1600 75 Balance 68 270 900 Cefepime # 1 Azithromycin # 5 Blood cultures x2 no growth Chest x-ray with more prominent left-sided infiltrate and potentially slightly increased size of right pleural effusion Urine Streptococcus pneumoniae and Legionella antigens pending Serum cryptococcal antigen and Coccidioides antibody pending Sputum with 2+ white blood cells, mixed Gram stain, and pending culture - Physical Exam General Appearance: alert, no apparent distress, non-toxic EENT: No scleral icterus, No thrush Respiratory: crackles (Left base), other (Decreased breath sounds right base, appears more comfortable today) Cardiac/Chest: regular rate, rhythm Abdomen: non-tender, No distended ICD10 Worksheet Patient Problems: Problems Problem Status Onset Chronic disease mgmt/Transitional Care Acute Hypoxemia Acute Pneumonia Acute
[2017-06-02] MEDS: CEFEPIME HCL 1 GM in STERILE WATER INJ 11.3 ML IV SCH ×2 (06:14→17:14)
[2017-06-02] MEDS ORDERED: POTASSIUM CL 10 MEQ TAB PO ONE (07:36)
[2017-06-02] MEDS: APIXABAN 5 MG TAB PO SCH ×2 (07:50→21:39)
[2017-06-02] MEDS: AZITHROMYCIN IV 500 MG in NS 250 ML IV SCH (07:50)
[2017-06-02] MEDS: METOPROLOL TARTRATE 25 MG TAB PO SCH ×2 (07:51→21:39)
--- NOTE | 2017-06-02 09:00 | SOAPPROG ---
SOAP Progress Note Assessment/Plan: Assessment: 1. Multiple myeloma, in remission. he has hypogammaglobulinemia. 0.4 gm/dl. An option is to give IVIG to help clear the PNA. 2. Pneumonia, recurrent (previous episode [place] 2016 [place] of state[place] Pleural effusion is increasing. films reviewed. Question of tapping RIGHT effusion and sending cultures etc. I'll defer to Dr. Terry. 3. A fib, new Plan: - continue current abx - hold revlimid for now - hold ASA while on Eliquis (either one can be used for VTE prophylaxis from Revlimid, but both are not needed) - will check Qigs - IVIG may be helpful. - consider RIGHT thoracentesis 06/02/17 08:57 Objective: Vital Signs Temp Pulse Resp BP Pulse Ox 37.1 C 83 18 152/46 H 94 06/02/17 07:38 06/02/17 07:38 06/02/17 07:38 06/02/17 07:38 06/02/17 07:38 Microbiology 05/31/17 19:40 - Final Sputum, Expectorated Laboratory Results 06/01/17 03:40 06/02/17 03:44 06/01/17 06/02/17 06/03/17 05:59 05:59 05:59 Intake Total 1870 1375 Output Total 1600 75 Balance [address] up on the RIGHT. Left clear. RR no edema. abdomen benign. - Time Spent With Patient Time Spent With Patient: 30 min face to face ICD10 Worksheet Patient Problems: Problems Problem Status Onset Chronic disease mgmt/Transitional Care Acute Pneumonia Acute Hypoxemia Acute
[2017-06-02] MEDS: ACETAMINOPHEN 325 MG TAB PO PRN (13:12)
--- NOTE | 2017-06-02 16:14 | HOSPPROG ---
Hospitalist Progress Note Assessment/Plan: Assessment: 72 yo M p/w community acquired pneumonia in setting of Multiple Myeloma on chronic immune suppression Plan: # community acquired pneumonia: POA, CXR W/ RLL infiltrate and pleural effusion , suspect it is parapneumonic - symptomatically improving, so will defer thora and counseled patient that the effusion is likely to reabsorb, recommend outpt f/u CXR in 4-6 weeks - cont on Cefepime/Azithro per ID, appreciate ongoing consultation - RVP neg - counseled patient regarding PVX and encouraged him to f/u w/ Dr. Mendenhall to determine whether he requires f/u vaccine, depending on which valency he received # sepsis: POA, in setting of above, evidenced by autonomic dysregulation in setting of infxn w/ end-organ failure (acute resp failure) # acute hypoxic respiratory failure: 2/2 CAP, patient continues to require 2L of o2, weaning, and counseled patient he will likely require o2 at discharge to be reassessed in outpt setting # Multiple Myeloma w/ chronic immunosuppression: previously on revlimib, appreciate onc consult, currently in remission - Ig levels all low, revlimib on hold, onc will consider outpt options, primary is Dr. Navarrete # atrial fibrillation: paroxysmal in setting of infxn/sepsis, monitoring on tele , currently in NSR on tele (personally interpreted) - cont on metoprolol and eliquis # bph: continue flomax diet. regular ppx. high risk, on eliquis code. full dispo. ADD 06/03, pending clinical stabilization of above Subjective: N/V resolved, ongoing severe fatigue Objective: Vital Signs Temp Pulse Resp BP Pulse Ox 36.8 C 75 15 121/55 H 95 06/02/17 11:34 06/02/17 11:34 06/02/17 11:34 06/02/17 11:34 06/02/17 11:34 Microbiology 05/31/17 19:40 - Final Sputum, Expectorated Laboratory Results 06/01/17 03:40 06/02/17 03:44 06/01/17 06/02/17 06/03/17 05:59 05:59 05:59 Intake Total 1870 1375 Output Total 1600 75 Balance 270 1300 - Time Spent With Patient Time Spent with Patient: greater than 35 minutes Time Spent with Patient: Greater than 35 minutes spent on this patients care, greater than 50% of time spent counseling, educating, and coordinating care regarding the above mentioned plan. - Physical Exam Constitutional: no apparent distress, not in pain, No uncomfortable Cardiovascular: regular rate and rhythym, no murmur, rub, or gallop, No edema Respiratory: reduced air movement (R base), inspiratory crackles (L base), No expiratory wheeze, No bronchial breath sounds, No aegophony, No respiratory distress Gastrointestinal: normoactive bowel sounds, soft, non-tender abdomen, no palpable masses, No distension Neurologic: AAOx3, No weakness Psychiatric: interacting appropriately, not anxious, not encephalopathic, thought process linear ICD10 Worksheet Patient Problems: Problems Problem Status Onset Chronic disease mgmt/Transitional Care Acute Pneumonia Acute Hypoxemia Acute
[2017-06-02] MEDS: TAMSULOSIN HCL 0.4 MG CAP PO SCH (17:14)
[2017-06-02] MEDS: ACETAMINOPHEN 500 MG TAB PO SCH ×2 (17:14→21:39)
--- NOTE | 2017-06-02 17:37 | PCMIDPN ---
Assessment/Plan: Assessment/Plan: * Severe right lower lobe pneumonia/less prominent left lower lobe pneumonia with underlying myeloma: Continued clinical improvement with antibiotic therapy. Sputum shows Pseudomonas aeruginosa and Kellen albicans. Unclear if Pseudomonas represents true pathogen versus colonization - await susceptibility profile on Pseudomonas. Clinical presentation most compatible with typical pathogens of community-acquired pneumonia. Nevertheless, covered by cefepime. Will discontinue azithromycin given Legionella antigen is negative. Plan repeat chest x-ray with lateral decubitus films tomorrow to assess pleural effusion further. Discussed hypogammaglobulinemia with Dr. Torrez with probable replacement IVIG to begin tomorrow which may help facilitate resolution of pneumonia. Kellen albicans in sputum does not require targeted therapy as unlikely contributing. 06/02/17 17:33 Subjective: Patient continues to feel improved. Today's the best day he has felt. Cough has decreased and breathing more easily. Objective: Vital Signs Temp Pulse Resp BP Pulse Ox 36.8 C 64 15 131/61 H 92 06/02/17 16:00 06/02/17 16:00 06/02/17 16:00 06/02/17 16:00 06/02/17 16:00 Microbiology 05/31/17 19:40 - Final Sputum, Expectorated Laboratory Results 06/01/17 03:40 06/02/17 03:44 06/01/17 06/02/17 06/03/17 05:59 05:59 05:59 Intake Total 1870 1375 Output Total 1600 75 Balance 270 1300 Cefepime # 2 Azithromycin # 6 Blood cultures x2 no growth Urine Streptococcus pneumoniae and Legionella antigens negative Serum cryptococcal antigen Coccidioides antibody pending Sputum with 2+ white blood cells, mixed Gram stain, and growth of Pseudomonas aeruginosa/Kellen albicans - Physical Exam General Appearance: alert, no apparent distress EENT: No scleral icterus, No thrush Respiratory: other (Decreased breath sounds approximately nursing home up on right) Cardiac/Chest: regular rate, rhythm Abdomen: non-tender, No distended ICD10 Worksheet Patient Problems: Problems Problem Status Onset Chronic disease mgmt/Transitional Care Acute Hypoxemia Acute Pneumonia Acute
[2017-06-02] MEDS ORDERED: ACETAMINOPHEN 325 MG TAB PO SCH (21:15)
[2017-06-02] MEDS ORDERED: diphenhydrAMINE 25 MG CAP PO SCH (21:15)
[2017-06-02] MEDS ORDERED: IMMUNE GLOBULIN 20 GM/200 ML VIAL IV SCH (21:30)
[2017-06-02] MEDS ORDERED: IMMUNE GLOBULIN 10 GM/100 ML VIAL IV ONE (21:30)
[2017-06-02] MEDS: ZOLPIDEM TARTRATE 5 MG TAB PO PRN (21:39)
[2017-06-03 04:33] LABS: PLATELET COUNT 236 10^3/uL (150-400)
[2017-06-03] MEDS: CEFEPIME HCL 1 GM in STERILE WATER INJ 11.3 ML IV SCH (06:04)
[2017-06-03] MEDS ORDERED: ACETAMINOPHEN 500 MG TAB PO ONE (07:00)
[2017-06-03] MEDS ORDERED: diphenhydrAMINE 25 MG CAP PO ONE (07:00)
[2017-06-03] MEDS ORDERED: ACETAMINOPHEN 325 MG TAB PO ONE (07:00)
[2017-06-03] MEDS ORDERED: IMMUNE GLOBULIN 20 GM/200 ML VIAL IV ONE (08:00)
[2017-06-03] MEDS ORDERED: IMMUNE GLOBULIN 20 GM/200 ML VIAL IV SCH (08:00)
[2017-06-03] MEDS ORDERED: IMMUNE GLOBULIN 10 GM/100 ML VIAL IV ONE (08:00)
[2017-06-03] MEDS: METOPROLOL TARTRATE 25 MG TAB PO SCH (09:30)
[2017-06-03] MEDS: APIXABAN 5 MG TAB PO SCH (09:31)
--- NOTE | 2017-06-03 10:05 | SOAPPROG ---
SOAP Progress Note Assessment/Plan: Assessment: 1. Multiple myeloma, in remission. 2. Pneumonia, recurrent ([place]) 3. 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 Bloom 06/03/17 10:03 Subjective: feeling better Objective: exam: breathing comfortably dullness @ R base. some crackles L base CV RRR no MGR Abd: +BS NT ND Ext: no edema Vital Signs Temp Pulse Resp BP Pulse Ox 36.9 C 69 18 130/63 H 94 06/03/17 09:19 06/03/17 09:19 06/03/17 09:19 06/03/17 09:19 06/03/17 09:19 Microbiology 05/31/17 19:40 - Final Sputum, Expectorated Laboratory Results 06/03/17 03:57 06/03/17 03:57 06/02/17 06/03/17 06/04/17 05:59 05:59 05:59 Intake Total 1375 1500 Output Total 75 Balance 1300 1500 ICD10 Worksheet Patient Problems: Problems Problem Status Onset Chronic disease mgmt/Transitional Care Acute Hypoxemia Acute Pneumonia Acute
[2017-06-03 12:50] VITALS: BP 140/59
--- NOTE | 2017-06-03 15:14 | PCMIDPN ---
Assessment/Plan: Assessment/Plan: * Severe right lower lobe pneumonia/less prominent left lower lobe pneumonia with underlying myeloma: Feels significantly improved. Pleural effusion layers on decubitus films which argues against more complicated parapneumonic effusion. Given these findings an ongoing chronic anticoagulation, will not proceed with thoracentesis at this point in time. Unclear if Pseudomonas in sputum is etiologic versus representing colonization. Given clinical improvement, think can transition to oral levofloxacin 750 mg daily x5 additional days to complete therapy. Will need imaging over time to ensure resolution of effusion and consolidation. Patient to receive IVIG today given hypogammaglobulinemia. Okay for discharge from ID perspective later today if tolerates IVIG well. Will see patient in follow-up next week in my office. 06/03/17 15:11 06/03/17 15:14 Subjective: Patient continues to feel better each day. Notes cough is resolving. Continuing to breathe more easily. Objective: Vital Signs Temp Pulse Resp BP Pulse Ox 36.5 C 62 21 H 140/59 H 90 L 06/03/17 12:30 06/03/17 12:30 06/03/17 12:30 06/03/17 12:30 06/03/17 12:30 Microbiology 05/31/17 19:40 - Final Sputum, Expectorated Laboratory Results 06/03/17 03:57 06/03/17 03:57 06/02/17 06/03/17 06/04/17 05:59 05:59 05:59 Intake Total 1375 1500 950 Output Total 75 Balance 1300 1500 950 Cefepime # 3 Blood cultures x2 no growth Serum cryptococcal antigen negative Coccidioides antibody pending Sputum with growth of Kellen albicans and Pseudomonas; I have asked lab to do susceptibility profile on Pseudomonas Chest x-ray with decreasing prominence of right lower lobe infiltrate with layering effusion - Physical Exam General Appearance: alert, no apparent distress EENT: No scleral icterus, No thrush Respiratory: other (Decreased breath sounds in right lower lung field but improved air movement today) Cardiac/Chest: regular rate, rhythm Abdomen: non-tender, No distended ICD10 Worksheet Patient Problems: Problems Problem Status Onset Chronic disease [facility]/Transitional Care Acute Hypoxemia Acute Pneumonia Acute
[2017-06-03] MEDS ORDERED: ACETAMINOPHEN 500 MG TAB PO SCH (16:00)
--- NOTE | 2017-06-03 19:04 | PDDCSUM ---
Discharge Summary Discharge Summary: DISCHARGE SUMMARY FOLLOW-UP ITEMS: Follow up Pseudomonas sensitivities with Dr. Naveed Terry as scheduled, Dr. Arun Navarrete thereafter DATE OF ADMISSION: 05/28/17 DATE OF DISCHARGE: 06/03/17 DISCHARGE DIAGNOSES: 1. Possible Pseudomonas pneumonia present on admission 2. Sepsis present on admission 3. Acute hypoxic respiratory failure 4. Multiple myeloma with chronic immunosuppression and hypogammaglobulinemia 5. Paroxysmal atrial fibrillation 6. Chronic BPH 7. Acute right-sided pleural effusion CONSULTATIONS: Oncology, Infectious Disease PROCEDURES / IMAGING: CT angiogram demonstrating no evidence of pulmonary embolism, patient has right lower lobe pneumonia with effusion Chest x-ray prior to discharge demonstrates layering right lower lobe effusion with improving airspace disease CHIEF COMPLAINT: Shortness of breath and fatigue SUBJECTIVE: Patient is feeling much improved at discharge, his cough is symptomatically improving PHYSICAL EXAM ON DISCHARGE: Systolic blood pressure is 130-150, heart rate 60 70, afebrile overnight, satting greater than 90% on room air at rest and with ambulation LABS ON DISCHARGE: White blood cell count 3900, hemoglobin 10.4, platelets [id number], creatinine 1, sputum culture demonstrating Pseudomonas, sensitivities pending at time discharge HOSPITAL COURSE BY PROBLEM: 1. Possible Pseudomonas pneumonia. Present on admission, chest x-ray with right lower lobe infiltrate with resultant parapneumonic effusion, sputum cultures demonstrating Pseudomonas, sensitivities pending at time discharge. Patient responded to IV cefepime which cover Pseudomonas, and was transitioned to oral levofloxacin for 5 subsequent days at time of discharge. He will follow up with Dr. Naveed Terry for sensitivity and reassessment. 2. Multiple myeloma with chronic immunosuppression and hypogammaglobulinemia. Patient was previously on Revlimid, he was seen consultation by Oncology, he is currently in remission and had notably low IgG levels, he received IV Ig prior to discharge. 3. Sepsis. Present on admission, evidenced by autonomic dysregulation in the setting of infection with evidence of end-organ failure notably respiratory failure, responded to empiric IV antibiotics. 4. Acute hypoxic respiratory failure. Secondary to pneumonia and effusion, evidenced by SpO2 of 82% on room air with objective tachypnea as well as high- flow oxygen requirements up to 8 liters/minute, weaned during his hospitalization and currently saturating well on room air prior to discharge. 5. Atrial fibrillation, paroxysmal. Most likely provoked by sepsis and infection, initiated on metoprolol 25 mg twice daily and achieved normal sinus mechanism, continue on beta-oj as well as Eliquis for systemic anticoagulation. Patient was provided with Eliquis initiation card on discharge. 6. Chronic BPH. Patient was continued on Flomax. 7. Acute pleural effusion. Patient experienced a right lower lobe effusion, most likely parapneumonic, layering on chest x-ray prior to discharge, no tap indicated. DISCHARGE MEDICATIONS: Please see official discharge medication reconciliation sheet in chart , continue home medications with addition of levofloxacin 750 mg daily x5 subsequent days, metoprolol tartrate 25 mg twice daily, Eliquis 5 mg twice daily. DISCHARGE INSTRUCTIONS: Please follow up Dr. Naveed Terry as scheduled TIME SPENT: Greater than 30 minutes were spent on direct patient care, as well as discharge planning and preparation.
== END 2017-06-03 15:50 | disposition home or self-care (01) | DRG 871 ==
LOC: OBSVTOIN 13:56 → F3E 15:19 → F2W 05-30 10:50
PROVIDERS: ADMIT Internal Medicine; ATTEND Internal Medicine
PROC: 30233S1 Transfusion of Nonautologous Globulin into Peripheral Vein, Percutaneous Approach (ICD-10-PCS; principal; 2017-06-03)
DX: A41.52 Sepsis due to Pseudomonas (principal); J15.1 Pneumonia due to Pseudomonas; J91.8 Pleural effusion in other conditions classified elsewhere; J96.01 Acute respiratory failure with hypoxia; C90.01 Multiple myeloma in remission; I48.0 Paroxysmal atrial fibrillation; G62.0 Drug-induced polyneuropathy; T45.1X5S Adverse effect of antineoplastic and immunosuppressive drugs, sequela; N40.0 Benign prostatic hyperplasia without lower urinary tract symptoms; Z87.891 Personal history of nicotine dependence
CPT/HCPCS: 82784-90; 86635-90; 87449-90; 96365; 97161-GP; G0378; G8978-GP-CI; G8979-GP-CI; G8980-GP-CI; J0456; J0692; J0696; J1459; J1650; J2405; J2550; Q9967

== ENCOUNTER → 2017-06-16 | Outpatient (CLI) | payer OTHER | LOC: FLAB 12:50 | PROVIDERS: ATTEND Internal Medicine Infectious Disease | DX: Z09 Encounter for follow-up examination after completed treatment for conditions other than malignant neoplasm (principal); J18.9 Pneumonia, unspecified organism ==

== ENCOUNTER → 2017-12-24 | Outpatient (CLI) | payer OTHER | LOC: FIMAGING 09:51 | PROVIDERS: ATTEND Internal Medicine Hematology & Oncology | DX: Z13.820 Encounter for screening for osteoporosis (principal); M85.839 Other specified disorders of bone density and structure, unspecified forearm ==

== ENCOUNTER → 2018-07-08 | Outpatient (CLI) | payer OTHER | LOC: BHFA 16:15 | PROVIDERS: ATTEND Internal Medicine Cardiovascular Disease | DX: I48.91 Unspecified atrial fibrillation (principal) ==

== ENCOUNTER → 2018-07-13 | Outpatient (CLI) | payer OTHER | LOC: BMCIMAGING 12:42 | PROVIDERS: ATTEND Internal Medicine Hematology & Oncology | DX: Z13.89 Encounter for screening for other disorder (principal); C90.02 Multiple myeloma in relapse ==